=== PATIENT | female | born 1940 | race Two or more races ===

== ENCOUNTER → 2020-12-08 15:00 | Outpatient (CLI) | payer OTHER ==
[~2020-12-08 15:00] MED LIST: ATENOLOL50 MG PO; GLIPIZIDE XL10 MG PO
== END | disposition home or self-care (01) ==
LOC: PPH VACUNA 15:00
DX: Z23 Encounter for immunization (principal)

== ENCOUNTER 2021-01-13 17:21 | Emergency (ER) | payer OTHER ==
[~2021-01-13] VITALS: Ht 152.4 cm; Wt 73.5 kg
[2021-01-13] MEDS ORDERED: ATENOLOL50 MG PO (17:31)
[2021-01-13] MEDS ORDERED: GLIPIZIDE XL10 MG PO (17:31)
== END 2021-01-13 19:50 | disposition home or self-care (01) ==
LOC: ER 17:21
DX: S09.8XXA Other specified injuries of head, initial encounter (principal); S40.011A Contusion of right shoulder, initial encounter; W18.39XA Other fall on same level, initial encounter; Y92.018 Other place in single-family (private) house as the place of occurrence of the external cause

== ENCOUNTER 2021-06-24 10:44 | Emergency (ER) | payer OTHER ==
[~2021-06-24] VITALS: Ht 152.4 cm; Wt 83.9 kg
== END 2021-06-24 16:13 | disposition home or self-care (01) ==
LOC: ER 10:44
DX: R10.84 Generalized abdominal pain (principal); R11.2 Nausea with vomiting, unspecified; M54.30 Sciatica, unspecified side; E11.9 Type 2 diabetes mellitus without complications; Z79.84 Long term (current) use of oral hypoglycemic drugs; I10 Essential (primary) hypertension

== ENCOUNTER 2021-07-20 08:00 | Outpatient (CLI) | payer OTHER | END 2021-07-20 08:30 | disposition home or self-care (01) | LOC: PPH VACUNA 08:00 | PROVIDERS: ATTEND Emergency Medicine Pediatric Emergency Medicine | DX: Z23 Encounter for immunization (principal) ==

== ENCOUNTER → 2022-07-12 | Emergency (ER) | payer OTHER ==
[~2022-07-12] VITALS: Ht 152.4 cm; Wt 81.6 kg
[~2022-07-12] MED LIST changes: +LIPITOR40 MG; +METFORMIN HCL500 M3
== END | disposition left against medical advice (07) ==
LOC: ER 09:14
DX: M25.562 Pain in left knee (principal)